=== PATIENT | male | born 1980 | race Caucasian/White ===

== ENCOUNTER 2022-05-23 12:26 | Emergency (ER) | payer OTHER, SELFPAY ==
[2022-05-23 12:37] VITALS: BP 134/86; PULSE 70; RESP 14; TEMP 37.2; O2SAT 99
--- NOTE | 2022-05-23 12:45 | DI.RAD_ITS ---
Exam(s) XR SHOULDER RT COMPLETE 2+V EXAM: XR SHOULDER RT COMPLETE 2+V CLINICAL HISTORY: trauma with lateral pain. TECHNIQUE: 2D digital imaging was performed. COMPARISON: No exams were available for comparison FINDINGS: Five views: There is a displaced comminuted fracture of the lateral aspect of the right clavicle. The AC joint i tself is not dislocated. No osseous lesions. Acromion appears unremarkable. Humeral head and neck are intact as is the osseous glenoid and coracoid process. No scapular findings. IMPRESSION: There is a comminuted displaced fracture of the distal aspect of the right clavicle. The right AC tyron int itself is intact. DATA REPOSITORY: RADIATION DOSE DELIVERED:
[2022-05-23] MEDS: Ketorolac 30 MG/ML VIAL IM (13:03)
--- OUTSIDE RECORDS SUMMARY | 2022-05-23 13:08 | XMS_ITS | Clinical Summary ---
:1980 Author Organization [facility] Address [phone] [place] [address] Care Team Providers Name Role Phone Bess Foote MD Primary Care Provider Allergies Active Allergy Reactions Severity Noted Date Comments Penicillins Itching 07/07/2016 Medications Medication Sig Dispensed Refills Start Date End Date Status allopurinol (ZYLOPRIM) Take 100 mg by 0 Active 100 MG tablet mouth daily. Active Problems No known active problems Social History Tobacco Use Types Packs/Day Years Used Date Never Smoker Alcohol Use Standard Drinks/Week Comments Yes 0 (1 standard drink = 0.6 oz pure alcoho l) moderate use Alcohol Habits Answer Date Recorded How often do you have a drink containing alcohol? Not asked How many drinks containing alcohol do you have on a Not aske d typical day when you are drinking? How often do you have six or more drinks on one occasion? No t asked Comment: moderate use 07/07/2016 Sex Assigned at Date Recorded Not on file Last Filed Vital Signs Vital Sign Reading Time Taken Comments Blood Pressure 127/82 07/22/2016 2:58 PM EST Pulse 77 07/22/2016 2:58 PM EST Temperature - - Respiratory Rate - - Oxygen Saturation - - Inhaled Oxygen Concentration - - Weight 90.7 kg (200 lb) 07/07/2016 9:02 AM EST Height 172.7 cm (5' 8) 07/07/2016 9:02 AM EST Body Mass Index 30.41 07/07/2016 9:02 AM EST Plan of Treatment Health Maintenance Due Date Last Done Comments Adult Td,Tdap Booster 1980 CREATININE LEVEL 1980 LIPID PANEL 1979 COVID-19 VACCINE (#1) 1979 DEPRESSION SCREENING 1997 HEPATITIS C SCREENING 1997 HIV ONE-TIME SCREENING (18-65 1997 YEARS) INFLUENZA VACCINE (#1) 2022 SMOKING STATUS SCREENING (Once Completed 07/22/2016 After 26 Yrs) HIB VACCINES Aged Out No longer eligib le based on patient's age to complete this topic MENINGOCOCCAL VACCINES (ACWY) Aged Out No longer eligible based on patient's age to complete this topic PNEUMOCOCCAL VACCINES (0-64 years) Aged Out No longer eligible based on patient's age to complete this topic Medical Devices Not on file Insurance Payer Benefit Plan / Subscriber ID Effective Dates Phone Addre ss Type Group [facility] [id number] 2015-Ngoc [phone] [address] [place] [address] [place] [address] Care Teams Outside Plant Supervisor Relationship Specialty Start Date End Date Bess Foote MD PCP - General Internal Medicine 06/30/[address] [place] [address] [phone] Additional Source Comments The information contained in this document represents components of the legal health record. It is not the complete legal health record.[facility]
--- OUTSIDE RECORDS SUMMARY | 2022-05-23 13:08 | XMS_ITS | Encounter Summary ---
:1980 Author Organization [facility] Address [phone] [facility] [place] [address] Care Team Providers Name Role Phone Bess Foote MD Primary Care Provider Reason for Visit Reason Comments New Evaluation Hip Pain radiating pain down the righ t side leg Back Pain Consultation (Routine) - Closed Specialty Diagnoses / Referred By Contact Referred To Contact Procedures Physical Medicine and Diagnoses BACK PAIN INTO RT LEG, MRI [facility] WAS ASKED DISC, , WEB CLC 06/30 Bess Foote Finno, Mark A, MD Rehabilitation / Procedures NEW PATIENT [address] [place] [address] [address] [place] [address] [address] [place], [place] Fax: [phone] Email: [email or web address] Referral ID Status Reason Start Date Expiration Date Visits Requ ested Visits Authorized [id number] Closed 07/07/2016 07/06/2017 3 3 Encounter Details Date Type Department Care Team Description 07/07/2016 Office Visit Orthopedics Da Carpenter, Lumbar rad iculopathy Renuka Sanchez MD (Primary Dx) [address] [address] [place] Sanchez [address] [phone] [email or web address] Social History Tobacco Use Types Packs/Day Years [...] Assigned at Date Recorded Not on file documented as of this encounter Last Filed Vital Signs Vital Sign Reading Time Taken Comments Blood Pressure 135/78 07/07/2016 9:02 AM EST Pulse 81 07/07/2016 9:02 AM EST Temperature - - Respiratory Rate - - Oxygen Saturation - - Inhaled Oxygen Concentration - - Weight 90.7 kg (200 lb) 07/07/2016 9:02 AM EST Height 172.7 cm (5' 8) 07/07/2016 9:02 AM EST Body Mass Index 30.41 07/07/2016 9:02 AM EST documented in this encounter Progress Notes Da Oliveros MD - 07/07/2016 9:00 AM EST Chief Complaint: Radiating right leg pain. History of Present Illness: The patient is a 36-year-old male. He comes to the office today with thechief complaint of radiating right leg pain. He quantifies this pain at a 6/10 on a numeric pain scale. The symptoms travel down quite distally. He does have tingling and numbness as well. He does notesome weakness. Sitting is his worst position, standing will help. The onset of the current problem was about six weeks ago. There was no specific precipitating event.Since the onset of these symptoms he has had no improvements. He denies any problem like this prior to six weeks ago. He has no other complaints. Diagnostics: The patient is status post an MRI of his lumbar spine. This was done on 06/18/2016. He does have these films as well as the official radiology report available for my personal review. There is a large right paracentral disc protrusion at L5-S1 near the S1 nerve root. Therapeutics: He is being followed by his primary care physician. He has been working with his exercise program. He has tried ibuprofen. Functional History: The patient is working. He stays reasonably active. Social History: The patient is . He does not smoke. He drinks alcohol socially. Past Medical History: The patient denies any pertinent medical history. Past Surgical History: Tonsillectomy. Medications: Ibuprofen p.r.n. Allergies: Penicillin causes a rash. Family History: The patient denies any pertinent family history of coronary artery disease or malignancy. Review of Systems: The patient has not had any changes in his bowel or bladder function. He has no complaints of fevers, night sweats, or chills. He has no chest pain or shortness of breath. He has no abdominal pain. Please see attached sheet for further review of systems. Physical Examination: The patient is sitting on the exam table in no acute distress. He is an alert and oriented x3 well-developed male. He is very pleasant. He is 5???8?? tall and weighs 200 pounds. Upon examination of his lumbar spine in the standing posture, there is 75 degrees of flexion with 25 d egrees of extension. There is end-range pain with flexion. Straight leg raising is negative on the left and positive on the right. Femoral stretch sign is negative bilaterally. Muscle motor strength is5/5 in the lower extremities. Reflexes in the bilateral lower extremities are 2+ patellar and 2+ Achilles. Sensation is intact in the lower extremities. There is some tenderness across the right-sided lumbar paraspinals. Skin over the lumbar spine is intact. He has full hip range of motion. He ambulates with a stable nonantalgic gait. Distal pulses are intact. Coordination is intact. No signs of lumbar instability. Assessment: 1. Unresolving radiating right leg pain. 2. The patient is status post an MRI of his lumbar spine. Recommendations: At this time we went over the patient???s symptoms. We spoke about his interventions to this point. He is not making any significant progress. The pain is present every day and interferes with his function. For those reasons I would like to go ahead with a focused right S1 transforaminal epidural steroid injection. The procedure was described in detail. Consent was obtained. All of his questions were answered. I will see him two weeks after the injection for reevaluation. He does not need any other imaging. He will continue with his normal activities. He will continue to work. He will continue with his physician-guided home exercise program which he has been doing for six weeks. He will continue with the p.r.n. use of his Advil. documented in this encounter Plan of Treatment Not on filedocumented as of this encounter Visit Diagnoses Diagnosis Lumbar radiculopathy - Primary Thoracic or lumbosacral neuritis or radi culitis, unspecified documented in this encounter Care Teams Web Retailer Relationship Specialty Start Date End Date Bess Foote MD PCP - General Internal Medicine 06/30/[address] [place] [address] [phone] documented as of this encounter Additional Source Comments The information contained in this document represents components of the legal health record. It is not the complete legal health record.[facility]
--- OUTSIDE RECORDS SUMMARY | 2022-05-23 13:08 | XMS_ITS ---
:1980 Author Care Team Providers Name Role Phone DR. KORI MARTIN MD Primary Care Provider [phone] DR. KORI MARTIN MD Referring Provider [phone] Allergies Code Code System Name Reaction Severity Status Onset Penicillins ? ? Active ? Medications Name Status Start Date Stop Date ? ? allopurinol 300 mg tablet Active ? Not av ailable indomethacin 25 mg capsule Active ? Not a vailable sulfamethoxazole 800 mg-trimethoprim 160 mg tablet Active ? Not available Problems Name Status Onset Date Source ? Multiple Benign Melanocytic Nevi Active ? Encounter Procedures None recorded. Results Lab Results None recorded. Past Encounters None recorded. Social History Tobacco Smoking Status Never Smoker Vaccine List None recorded. Plan of Care Reminders Provider Appointments None recorded. ? ? Lab None recorded. ? ? Referral None recorded. ? ? Procedures None recorded. ? ? Surgeries None recorded. ? ? Imaging None recorded. ? ? Vitals Weight 200 lbs
--- OUTSIDE RECORDS SUMMARY | 2022-05-23 13:08 | XMS_ITS | Encounter Summary ---
:1980 Author Organization [facility] Address [phone] [place] [address] Drive [place] [id number] Care Team Providers Name Role Phone Bess Foote MD Primary Care Provider Reason for Visit Reason Comments Back Pain Treatment and Therapy Plan (Routine) - Closed Specialty Diagnoses / Procedures Referred By Contact Refer red To Contact Bess Foote M D Finno, Mark A, MD [facility] [address] [facility] [address] [place] [address] [place] [phone] Email: [email or web address] Referral ID Status Reason Start Date Expiration Date Visits Requ ested Visits Authorized [id number] Closed 07/13/2016 09/11/2016 1 1 Encounter Details Date Type Department Care Team Description 07/22/2016 Nurse Only Orthopedics Sidney Benjamin and Da Oliveros, Lumbar radiculopathy [address] Zelaya MD (Primary Dx) [place] [address] [address] [facility] [phone] [place] [address] [email or web address] Social History Tobacco Use Types Packs/Day [...] - Inhaled Oxygen Concentration - - Weight - - Height - - Body Mass Index - - documented in this encounter Progress Notes Da Oliveros MD - 07/22/2016 2:45 PM EST Procedure Note Patient Name: Carmelo Moreno Date: 07/22/2016 Type of Surgery: Right S1 transforaminal epidural steroid injection Pre Operative Diagnosis: Lumbar radiculopathy Post Operative Diagnosis: Same Type of Anesthesia: 1% lidocaine without epinephrine Surgeon: Da Oliveros MD Blood loss: None Method of surgery: The patient signed an informed consent form. All risks and complications were explained and all questions were answered. The patient was prepped and draped in a sterile fashion in the prone position. The patient???s spine was surveyed under fluoroscopic visualization and anatomical landmarks were identified. Right S1 transforaminal epidural steroid injection: Using fluoroscopic guidance, the Right S1 foramen was localized. The skin and soft tissues overlyingthis structure were infiltrated with 1% lidocaine without epinephrine. A 22G 3.5 inch spinal needle was inserted down to the lateral aspect of the Right S1 neural foramen. A 1cc volume of Isovue M 200 contrast was injected to verify needle tip position. Spot films demonstrate the localization. The injection was then performed using 1cc of Dexamethasone 10 mg and 2cc bupivicaine 0.25%. Following the injection, the needle was removed. Complications: The patient tolerated the procedure well and without complications. Disposition: The patient was discharged to the recovery area in good condition. The patient was instructed to apply ice to the injection site as needed. The patient was provided with a discharge instruction sheet. The patient will follow up in the office in 2 weeks. Physician: Da Oliveros MD documented in this encounter Plan of Treatment Not on filedocumented as of this encounter Visit Diagnoses Diagnosis Lumbar radiculopathy - Primary Thoracic or lumbosacral neuritis or radi culitis, unspecified documented in this encounter Care Teams Lap Checker Relationship Specialty Start Date End Date Bess Foote MD PCP - General Internal Medicine 06/30/[address] [place] [phone] documented as of this encounter Additional Source Comments The information contained in this document represents components of the legal health record. It is not the complete legal health record.[facility]
--- OUTSIDE RECORDS SUMMARY | 2022-05-23 13:08 | XMS_ITS | Encounter Summary ---
:1980 Author Organization [facility] Address [phone] [facility] [place] [address] Care Team Providers Name Role Phone Bess Foote MD Primary Care Provider Reason for Visit Consultation (Routine) - Closed Specialty Diagnoses / Referred By Contact Referred To Contact Procedures Physical Medicine and Diagnoses BACK PAIN INTO RT LEG, MRI [facility] WAS ASKED DISC, , WEB CLC 06/30 Bess Foote Finno, Mark A, MD Rehabilitation / Procedures NEW PATIENT [address] [facility] Orthopaedic Surgery [address] [place] [address] [address] [place], [place] Fax: [phone] Email: [email or web address] Referral ID Status Reason Start Date Expiration Date Visits Requ ested Visits Authorized [id number] Closed 07/07/2016 07/06/2017 3 3 Encounter Details Date Type Department Care Team Description 08/06/2016 Office Visit Orthopedics Da Carpenter, Lumbar rad iculopathy Renuka OSBORNE (Primary Dx) [address] [place] [address] [place] [address] [phone] [email or web address] Social History Tobacco Use Types Packs/Day [...] on file documented as of this encounter Progress Notes Da Oliveros MD - 08/06/2016 8:45 AM EST Error with dictation this date documented in this encounter Plan of Treatment Not on filedocumented as of this encounter Visit Diagnoses Diagnosis Lumbar radiculopathy - Primary Thoracic or lumbosacral neuritis or radi culitis, unspecified documented in this encounter Care Teams Truck Mechanic Apprentice Relationship Specialty Start Date End Date Bess Foote MD PCP - General Internal Medicine 06/30/[address] [place] [phone] documented as of this encounter Additional Source Comments The information contained in this document represents components of the legal health record. It is not the complete legal health record.[facility]
--- OUTSIDE RECORDS SUMMARY | 2022-05-23 13:08 | XMS_ITS ---
:1980 Author Care Team Providers Name Role Phone DR. KORI MARTIN Primary Care Provider [phone] DR. KORI MARTIN Referring Provider [phone] Allergies Code Code System Name Reaction Severity Status Onset Penicillins ? ? Active ? Medications Name Status Start Date Stop Date ? ? allopurinol 300 mg tablet Completed ? 2020 Take 1 tablet every day by oral route for 90 days. Needs appointment with pcp for further refills 05/01/19 azithromycin 250 mg tablet Completed ? 05/16 Bactrim DS 800 mg-160 mg tablet Completed ? 08/09/2014 Take 1 tablet every 12 hours by oral route for 10 days. clindamycin HCl 300 mg capsule Completed ? 0 05/16/2020 diclofenac 1 % topical gel Active ? Not a vailable APPLY 2 GRAM TO THE AFFECTED AREA(S) BY TOPICAL ROUTE 4 TIMES P ER DAY doxycycline hyclate 100 mg capsule Completed ? 03/30/2013 Take 1 capsule twice a day by oral route for 21 days. hydrocodone 5 mg-acetaminophen 325 mg tablet Completed ? 05/16/2020 ibuprofen 800 mg tablet Completed ? 05/16/20 Take 1 tablet twice a day by oral route for 30 days. indomethacin 25 mg capsule Unknown ? Not a vailable ipratropium 0.5 mg-albuterol 3 mg (2.5 mg base)/3 mL Active ? Not available nebulization soln ketoconazole 2 % shampoo Active ? Not alicia ilable prednisone 10 mg tablet Completed ? 05/16/20 20 Notes: otc, ibuprofen Problems Name Status Onset Date Source ? Asthmatic Bronchitis Active 12/09/2016 ? Lyme Disease Active ? ? Vitamin D Deficiency Active ? ? Gout Active ? ? Insomnia Active ? ? Steatosis of Liver Active ? ? Cellulitis of Toe Active ? ? Skin Lesion Active ? ? Acute Sciatica Active ? ? Lumbar Radiculopathy Active ? ? Spasm of Back Muscles Active ? ? Liver Enzymes Abnormal Active ? ? Weakness of Right Leg Active ? ? Procedures Date Name Performed by ? ? Prior Orthopaedic Surgery Information no t available Notes: rt hand ? Tonsillectomy Information not avai lable 06/18/2014 Ultrasound, Liver [facility] (Radiology)(Interface) [address] [place] [address] (Work Place) 06/09/2016 MRI, Lumbar Spine [facility] (Mri) [address] [place] [address] (Work Place) Results Lab Results Date Name Specimen Result Interpretation Description Value Range Status Address ? 05/19/2021 HbA1C Normal Hemoglobin 5.2 % of <5.7 % [facility] (Hemoglobin a1C total of total [facility]- a1C), Blood HGB HGB [place] Lab: [address] [place], [place] 05/19/2021 CBC W/ Auto Normal White Blood 8.3 3.8-10.8 [facility] Diff Cell Count thousand thousand Di agnostics- /uL /uL [place] Lab: [address] [place], [place] ? ? Normal Red Blood 5.34 4.20-5.8 Final Ques t Cell Count million/ 0 Diag nostics- uL million/ [place] [facility] uL Lab: [address] [place], [place] ? ? Normal Hemoglobin 15.7 13.2-17. Final Que st g/dL 1 g/dL Diagnostic s- [place] Lab: [address] [place], [place] ? ? Normal Hematocrit 47.2 % 38.5-50. Final Que st 0 % Diagnostic s- [place] Lab: [address] [place], [place] ? ? Normal Mcv 88.4 fL 80.0-100 [facility] .0 fL Diagnostic s- [place] Lab: [address] [place], [place] ? ? Normal Mch 29.4 pg 27.0-33. [facility] 0 pg Diagnostic s- [place] Lab: [address] [place], [place] ? ? Normal Mchc 33.3 32.0-36. [facility] g/dL 0 g/dL Diagnostic s- [place] Lab: [address] [place], [place] ? ? Normal Rdw 12.4 % 11.0-15. [facility] 0 % Diagnostic s- [place] Lab: [address] [place], [place] ? ? Normal Platelet 175 140-400 [facility] Count thousand thousand Diagno stics- /uL /uL [place] Lab: [address] [place], [place] ? ? Normal Mpv 11.4 fL 7.5-12.5 [facility] fL Diagnostic s- [place] Lab: [address] [place], [place] ? ? Normal Absolute 5221 1500-780 [facility] Neutrophils cells/uL 0 [facility]- cells/uL [place] [facility] Lab: [address] [place], [place] ? ? Normal Absolute 2266 850-3900 [facility] Lymphocytes cells/uL cells/uL D iagnostics- [place] Lab: [address] [place], [place] ? ? Normal Absolute 623 200-950 [facility] Monocytes cells/uL cells/uL [facility]- [place] Lab: [address] [place], [place] ? ? Normal Absolute 133 15-500 [facility] Eosinophils cells/uL cells/uL D iagnostics- [place] Lab: [address] [place], [place] ? ? Normal Absolute 58 0-200 [facility] Basophils cells/uL cells/uL [facility]- [place] Lab: [address] [place], [place] ? ? Normal Neutrophils 62.9 % ? Final Ques t Diagnostic s- [place] Lab: [address] [place], [place] ? ? Normal Lymphocytes 27.3 % ? Final Ques t Diagnostic s- [place] Lab: [address] [place], [place] ? ? Normal Monocytes 7.5 % ? [facility] s- [place] Lab: [address] [place], [place] ? ? Normal Eosinophils 1.6 % ? Final Ques t [facility]: [address] B, [facility] ? ? Normal Basophils 0.7 % ? [facility]: [address] B, [place] 05/19/2021 TSH, Serum or Normal TSH W/reflex 1.67 0.40-4 .5 [facility] Plasma to FT4 mIU/L 0 mIU/L [facility] Lab: [address] B, [place] 05/19/2021 Lipid Panel, Normal Cholesterol, 191 <200 [facility] Serum Total mg/dL mg/dL [facility]: [address] B, [facility] ? ? Normal HDL 42 mg/dL > or = [facility] Cholesterol 40 mg/dL [facility]- [facility] h Lab: [address] B, [facility] ? ? High Triglyceride 273 <[address] s mg/dL mg/dL [facility] Lab: [address] B, [facility] ? ? High LDL-choleste 110 ? Final Que st rol mg/dL Diagnostic s- (calc) [facility]: [address] B, [facility] ? ? Normal Chol/hdlc 4.5 <5.0 [facility] Ratio (calc) (calc) [facility] Lab: [address] B, [place] ? ? High Non HDL 149 <130 [facility] Cholesterol mg/dL mg/dL Diagn ostics- (calc) (calc) [facility] Lab: [address] B, [place] 05/19/2021 CMP, Serum or Normal Glucose 101 65-139 Elva l [facility] Plasma mg/dL mg/dL [facility] Lab: [address] B, [facility] ? ? Normal Urea 25 mg/dL 7-25 [facility] Nitrogen mg/dL [facility]: [address] [place], [place] ? ? Normal Creatinine 1.20 0.60-1.[address] mg/dL 5 mg/dL Diagnosti cs- [place] Lab: [address] [place], [place] ? ? Normal eGFR 75 > or = [facility] Non-afr. mL/min/1 60 Diagno stics- English .73m2 mL/min/1 [place] .73m2 Lab: [address] B, [place] ? ? Normal eGFR 87 > or = Final Que st English mL/min/1 60 Diagno stics- .73m2 mL/min/1 [place] .73m2 Lab: [address] B, [facility] ? ? Normal BUN/creatini not 6-[address] ne Ratio applicab (calc) Diagno stics- le [place] (calc) Lab: [address] B, [place] ? ? Normal Sodium 139 135-146 [facility] mmol/L mmol/L Diagnostic s- [place] Lab: [address] B, [place] ? ? Normal Potassium 4.6 3.5-5.3 [facility] mmol/L mmol/L Diagnostic s- [place] Lab: [address] B, [place] ? ? Normal Chloride 102 98-110 [facility] mmol/L mmol/L Diagnostic s- [place] Lab: [address] B, [place] ? ? Normal Carbon 29 20-32 [facility] Dioxide mmol/L mmol/L Diagnosti - [place] Lab: [address] B, [place] ? ? Normal Calcium 9.9 8.6-10.3 [facility] mg/dL mg/dL Diagnostic s- [place] Lab: [address] B, [place] ? ? Normal Protein, 7.5 g/dL 6.1-8.1 Final Ques t Total g/dL Diagnostic s- [place] Lab: [address] B, [place] ? ? Normal Albumin 4.8 g/dL 3.6-5.1 [facility] g/dL [facility]: [address] B, [facility] ? ? Normal Globulin 2.7 g/dL 1.9-3.7 Final Ques t (calc) g/dL Diagnostic s- (calc) [facility]: [address] B, [place] ? ? Normal Albumin/glob 1.8 1.0-2.5 Final Qu est ulin Ratio (calc) (calc) [facility] Lab: [address] B, [facility] ? ? Normal Bilirubin, 0.9 0.2-1.2 Final Ques t Total mg/dL mg/dL Diagnostic [facility] Lab: [address] B, [facility] ? ? Normal Alkaline 84 U/L 36-130 [facility] Phosphatase U/L Diagn ostics- [facility] Lab: [address] B, [place] ? ? Normal Ast 25 U/L 10-40 [facility] U/L [facility] Lab: [address] B, [facility] ? ? Normal Alt 41 U/L 9-46 U/L [facility] Lab: [address] B, [place] 05/31/2020 HbA1C Normal Hemoglobin 5.1 % of <5.7 % [facility] (Hemoglobin a1C total of total [facility]- a1C), Blood HGB HGB [facility] Lab: [address] B, [place] 05/31/2020 Lipid Panel, Normal Cholesterol, 187 <200 [facility] Serum Total mg/dL mg/dL [facility] Lab: [address] B, [facility] ? ? Low HDL 32 mg/dL > or = [facility] Cholesterol 40 mg/dL [facility] Lab: [address] B, [facility] ? ? High Triglyceride 285 <[address] s mg/dL mg/dL Diagnostic s- [place] Lab: [address] B, [facility] ? ? High LDL-choleste 114 ? Final Que st rol mg/dL Diagnostic s- (calc) [facility] Lab: [address] B, [facility] ? ? High Chol/hdlc 5.8 <5.0 [facility] Ratio (calc) (calc) Diagnostic s- [place] Lab: [address] B, [facility] h ? ? High Non HDL 155 <130 [facility] Cholesterol mg/dL mg/dL Diagn ostics- (calc) (calc) [facility] Lab: [address] 05/31/2020 CMP, Serum or Normal Glucose 92 mg/dL 65-139 Fi nal [facility] Plasma mg/dL Diagnostic s- [facility] Lab: [address], [facility] h ? ? Normal Urea 18 mg/dL 7-25 [facility] Nitrogen mg/dL Diagnost ics- (BUN) [facility] h Lab: [address] ? ? Normal Creatinine 1.07 0.60-1.[address] mg/dL 5 mg/dL Diagnosti cs- [facility] Lab: [address], [facility] ? ? Normal eGFR 86 > or = [facility] Non-afr. mL/min/1 60 Diagno stics- English .73m2 mL/min/1 [place] .73m2 Lab: [address], [facility] h ? ? Normal eGFR 100 > or = Final Que st English mL/min/1 60 Diagno stics- .73m2 mL/min/1 [place] .73m2 Lab: [address], [facility] h ? ? Normal BUN/creatini not 6-[address] ne Ratio applicab (calc) Diagno stics- le [facility] ([facility] Lab: [address] B, [facility] ? ? Normal Sodium 139 135-146 [facility] mmol/L mmol/L Diagnostic s- [place] Lab: [address] B, [facility] ? ? Normal Potassium 4.4 3.5-5.3 [facility] mmol/L mmol/L [facility] Lab: [address] B, [facility] ? ? Normal Chloride 101 98-110 [facility] mmol/L mmol/L [facility] Lab: [address] B, [facility] ? ? Normal Carbon 28 20-32 Final [facility] Dioxide mmol/L mmol/L [facility]: [address], [facility] ? ? Normal Calcium 9.6 8.6-10.3 [facility] mg/dL mg/dL Diagnostic [facility] Lab: [address] B, [facility] ? ? Normal Protein, 7.0 g/dL 6.1-8.1 Final Ques t Total g/dL Diagnostic [facility] h Lab: [address], [facility] ? ? Normal Albumin 4.6 g/dL 3.6-5.1 [facility] g/dL Diagnostic [facility] Lab: [address], [facility] ? ? Normal Globulin 2.4 g/dL 1.9-3.7 Final Ques t (calc) g/dL Diagnostic s- (calc) [facility] Lab: [address], [facility] ? ? Normal Albumin/glob 1.9 1.0-2.5 Final Qu est ulin Ratio (calc) (calc) [facility]o [facility]ics- [facility] Lab: [address] B, [facility] ? ? Normal Bilirubin, 0.8 0.2-1.2 Final Ques t Total mg/dL mg/dL Diagnostic [facility] Lab: [address] B, [facility] ? ? Normal Alkaline 63 U/L 36-130 [facility] Phosphatase U/L Diagn ostics- [facility] Lab: [address] [place], [place] ? ? Normal Ast 24 U/L 10-40 [facility] U/L Diagnostic s- [place] Lab: [address] [place], [place] ? ? Normal Alt 43 U/L 9-46 U/L [facility] Diagnostic s- [place] Lab: [address] [place], [place] 05/31/2020 Uric Acid, High Uric Acid 8.2 4.0-8.0 Elva l [facility] Serum or mg/dL mg/dL Diagnost ics- Plasma [place] Lab: [address] [place], [place] 05/31/2020 TSH, Serum or Normal TSH W/reflex 2.31 0.40-4 .5 Final [facility] Plasma to FT4 mIU/L 0 mIU/L Diagnosti cs- [place] Lab: [address] [place], [place] 05/31/2020 CBC W/ Auto Normal White Blood 7.6 3.8-10.8 [facility] Diff Cell Count thousand thousand Di agnostics- /uL /uL [place] Lab: [address] [place], [place] ? ? Normal Red Blood 5.25 4.20-5.8 Final Ques t Cell Count million/ 0 Diag nostics- uL million/ [place] [facility] uL Lab: [address] [place], [place] ? ? Normal Hemoglobin 15.7 13.2-17. Final Que st g/dL 1 g/dL Diagnostic s- [place] Lab: [address] [place], [place] ? ? Normal Hematocrit 45.8 % 38.5-50. Final Que st 0 % Diagnostic s- [place] Lab: [address] [place], [place] ? ? Normal Mcv 87.2 fL 80.0-100 [facility] .0 fL Diagnostic s- [place] Lab: [address] [place], [place] ? ? Normal Mch 29.9 pg 27.0-33. [facility] 0 pg Diagnostic s- [place] Lab: [address] [place], [place] ? ? Normal Mchc 34.3 32.0-36. [facility] g/dL 0 g/dL Diagnostic s- [place] Lab: [address] [place], [place] ? ? Normal Rdw 12.3 % 11.0-15. Final [facility] 0 % Diagnostic s- [place] Lab: [address] [place], [place] ? ? Normal Platelet 166 140-400 Final [facility] Count thousand thousand Diagno stics- /uL /uL [place] Lab: [address] [place], [place] ? ? Normal Mpv 11.6 fL 7.5-12.5 [facility] fL Diagnostic s- [place] Lab: [address] [place], [place] ? ? Normal Absolute 4940 1500-780 Final [facility] Neutrophils cells/uL 0 [facility]- cells/uL [place] [facility] Lab: [address] [place], [place] ? ? Normal Absolute 2029 850-3900 [facility] Lymphocytes cells/uL cells/uL D iagnostics- [place] Lab: [address] [place], [place] ? ? Normal Absolute 464 200-950 [facility] Monocytes cells/uL cells/uL [facility]- [place] Lab: [address] [place], [place] ? ? Normal Absolute 129 15-500 [facility] Eosinophils cells/uL cells/uL D iagnostics- [place] Lab: [address] [place], [place] ? ? Normal Absolute 38 0-200 [facility] Basophils cells/uL cells/uL [facility]- [place] Lab: [address] [place], [place] ? ? Normal Neutrophils 65 % ? Final Ques t Diagnostic s- [place] Lab: [address] [place], [place] ? ? Normal Lymphocytes 26.7 % ? Final Ques t Diagnostic s- [place] Lab: [address] [place], [place] ? ? Normal Monocytes 6.1 % ? [facility] s- [place] Lab: [address] [place], [place] ? ? Normal Eosinophils 1.7 % ? Final Ques t Diagnostic s- [place] Lab: [address] [place], [place] ? ? Normal Basophils 0.5 % ? [facility] s- [place] Lab: [address] [place], [place] 05/10/2019 CBC W/ Auto Normal White Blood 7.6 X10 4.5-11.0 Final [place] Diff Count 3/uL X10 3/uL East ? L ab: [address] [place] , ? ? Normal Red Blood 5.11 X10 4.00-5.5 Final [facility] Count 6/uL 0 X10 East ? Lab : 6/uL [address] [facility] , ? ? Normal Hemoglobin 15.2 13.0-17. Final [place] g/dL 0 g/dL East ? Lab : 111 [facility] , ? ? Normal Hematocrit 45.2 % 37.5-50. Final [place] 0 % East ? Lab : 111 [facility] , ? ? Normal Mean 88.5 fL 80.0-100 Final [place] Corpuscular .0 fL East ? Lab: Volume 111 [facility] , ? ? Normal Mean 29.7 pg 27.0-34. Final [place] Corpuscular 0 pg East ? Lab: Hemoglobin 111 [facility] , ? ? Normal Mean 33.6 31.0-36. Final [place] Corpuscular g/dL 0 g/dL East ? Lab: HGB Conc [address] [facility] , ? ? Normal Red Cell 12.5 % 11.5-15. Final [address] Distribution 0 % East ? Lab: Width [address] [facility] , ? ? Normal Platelet 178 X10 150-[address] Count 3/uL X10 3/uL East ? L ab: [address] , ? ? ? Immature 0.7 % ? Final [place] Granulocytes East ? Lab: % (Auto) [address] [facility] , ? ? ? Neutrophils 63.5 % ? Final [place] % (Auto) East ? L ab: 111 [facility] , ? ? ? Lymphocytes 28.1 % ? Final [place] % (Auto) East ? L ab: 111 [facility] , ? ? ? Monocytes % 5.6 % ? Final [place] (Auto) [place] ? Lab : 111 [facility] , ? ? ? Eosinophils 1.6 % ? Final [place] % (Auto) East ? L ab: 111 [facility] , ? ? ? Basophils % 0.5 % ? Final [place] (Auto) [place] ? Lab : 111 [facility] , ? ? Normal Immature 0.05 X10 0.00-0.0 Final [facility] Granulocytes 3/uL 9 X10 East ? Lab: # (Auto) 3/uL 111 [facility] , ? ? Normal Neutrophils 4.8 X10 1.5-7.8 Final [facility] ER # (Auto) 3/uL X10 3/uL East ? Lab: 111 [facility] , ? ? Normal Lymphocytes 2.1 X10 1.0-4.8 Final [facility] ER # (Auto) 3/uL X10 3/uL East ? Lab: 111 [facility] , ? ? Normal Monocytes # 0.4 X10 0.0-0.8 Final [facility] ER (Auto) 3/uL X10 3/uL East ? L ab: 111 [facility] , ? ? Normal Eosinophils 0.1 X10 0.0-0.5 Final [facility] ER # (Auto) 3/uL X10 3/uL East ? Lab: 111 [facility] , ? ? Normal Basophils # 0.0 X10 0.0-0.2 Final [facility] ER (Auto) 3/uL X10 3/uL East ? L ab: [facility] , ? ? Normal Nucleated 0.0 /100 0.0-0.0 Final [facility] RBC% WBC /100 WBC East ? L ab: [address] [place] [address] , [place] 05/10/2019 Hemoglobin a1C Normal Hemoglobin 4.9 4.3-5.9 Final [facility] a1C East ? Lab : [facility] , ? ? ? Estimated 94 mg/dL ? Final [place] Average East ? La b: Glucose 111 [facility] , [place] 05/10/2019 CMP, Serum or Normal Sodium 141 137-146 Elva l [place] Plasma mmol/L mmol/L East ? Lab : [address] [place] [address] , [place] ? ? Normal potassium,K 4.7 3.5-5.3 Final [place] mmol/L mmol/L East ? Lab : [address] [place] [address] , ? ? Normal Chloride 104 98-107 Final [place] mmol/L mmol/L East ? Lab : [address] [place] [address] , [place] ? ? Normal Carbon 27 23-32 Final [facility] Dioxide mmol/L mmol/L East ? La b: 111 [facility] , [place] ? ? Normal Anion Gap 10 5-15 Final [place] mmol/L mmol/L East ? Lab : [address] [place] [address] , [place] ? ? Normal Blood Urea 24 mg/dL 5-25 Final [place] Nitrogen mg/dL East ? L ab: [address] [place] [address] , ? ? Normal Creatinine 1.2 0.6-1.4 Final [place] mg/dL mg/dL East ? Lab : [address] [place] [address] , ? ? ? Estimated > 60 >=60 Final [place] GFR ( mL/min/ Eas t ? Lab: Viki 111 [facility] , [place] ? ? ? Estimated > 60 >=60 Final [place] GFR (Non Afr mL/min/ Eas t ? Lab: Viki [address] [place] [address] , ? ? Normal BUN/creatini 20.0 10.0-20. Final S [place] ne Ratio 0 East ? L ab: [facility] , ? ? Normal Glucose 96 mg/dL <100 Final [place] -fasting East ? L ab: mg/dL [facility] , ? ? Normal Calcium 9.7 8.6-10.3 Final [place] mg/dL mg/dL East ? Lab : [address] [place] [address] , [place] ? ? ? Bilirubin,to 0.9 <1.2 Final [place] chelsy mg/dL mg/dL East ? Lab : [address] [place] [address] , ? ? Normal Aspartate 31 U/L 15-41 Final [place] Amino U/L East ? Lab : Transferase [address] [place] [address] [place] , ? ? Normal Alanine 46 U/L 14-63 Final [place] Aminotransfer U/L Eas t ? Lab: ase [address] [place] [address] [facility] , ? ? Normal Total 7.4 g/dL 6.4-8.3 Final [place] Protein g/dL East ? La b: [address] , ? ? Normal Albumin 4.8 g/dL 4.0-5.[address] Level g/dL East ? Lab : [address] [place] [address] [facility] , ? ? Normal Albumin/glob 1.8 1.0-2.[address] ulin Ratio East ? Lab: [address] [place] [address] [facility] , ? ? Normal Alkaline 69 U/L 40-129 Final [place] Phosphatase U/L East ? Lab: [address] [place] [address] , [place] 05/10/2019 Lipid Panel ? Triglyceride 119 <150 F inal [place] s mg/dL mg/dL East ? Lab : 111 [facility] , [place] ? ? ? Cholesterol 167 <200 Final [place] mg/dL mg/dL East ? Lab : 111 [facility] , [place] ? ? ? LDL 98 mg/dL <130 Final [place] Cholesterol,c mg/dL Eas t ? Lab: alculated 111 [facility] , [place] ? ? ? HDL 45 mg/dL >/= 40 Final [place] Cholesterol mg/dL East ? Lab: [address] [place] [address] , [place] ? ? ? LDL/HDL 2.2 ? Final [place] Ratio [place] ? Lab : 111 [facility] , [place] ? ? ? chol/HDL 3.7 ? Final [place] Ratio East ? Lab : [address] [place] [address] , [place] 05/10/2019 Lipid Panel ? Triglyceride 119 <150 F inal [place] s mg/dL mg/dL East ? Lab : 111 [facility] , [place] ? ? ? Cholesterol 167 <200 Final [place] mg/dL mg/dL East ? Lab : 111 [facility] , [place] ? ? ? LDL 98 mg/dL <130 Final [place] Cholesterol,c mg/dL Eas t ? Lab: alculated 111 [facility] , [place] ? ? ? HDL 45 mg/dL >/= 40 Final [facility] Cholesterol mg/dL East ? Lab: [address] [place] [facility] [place] ? ? ? LDL/HDL 2.2 ? Final [place] Ratio East ? Lab : 111 [facility] , [place] ? ? ? chol/HDL 3.7 ? Final [place] Ratio East ? Lab : 111 [facility] , [place] 05/10/2019 Thyroid Normal Thyroid 2.86 0.34-5.6 Final S [facility] Stimulating Stimulating uIU/mL 0 uIU/mL East ? Lab: Hormone Hormone [address] [facility] , [place] 05/16/2018 Uric Acid, Normal Uric Acid 5.3 4.0-8.0 Elva l [facility] Serum or mg/dL mg/dL Diagnost [facility]: [address], [facility] 05/16/2018 Lipid Panel, Normal Cholesterol, 179 <200 Final [facility] Serum Total mg/dL mg/dL [facility] Lab: [address] ? ? Low HDL 27 mg/dL >40 Final [facility] Cholesterol mg/dL [facility]: [address], [facility] ? ? High Triglyceride 270 <[address] s mg/dL mg/dL Diagnostic s- [facility] Lab: [address], [facility] ? ? High LDL-choleste 113 ? Final Que st rol mg/dL [facility]: [address] ? ? High Chol/hdlc 6.6 <5.0 Final [facility] Ratio (calc) (calc) [facility]- [facility]: [address] ? ? High Non HDL 152 <130 Final [facility] Cholesterol mg/dL mg/dL Diagn ostics- (calc) (calc) [facility] [address], [facility] 05/16[facility]2018 CMP, Serum or Normal Glucose 100 65-139 Elva l [facility] Plasma mg/dL mg/dL Diagnostic s- [place] Lab: [address] [place], [place] ? ? Normal Urea 20 mg/dL 7-25 Final [facility] Nitrogen mg/dL Diagnost ics- (BUN) [place] Lab: [address] [place], [place] ? ? Normal Creatinine 0.93 0.60-1.[address] mg/dL 5 mg/dL Diagnosti cs- [place] Lab: [address] [place], [place] ? ? Normal eGFR 104 > or = Final [facility] Non-afr. mL/min/1 60 Diagno stics- English .73m2 mL/min/1 [place] .73m2 Lab: [address] B, [place] ? ? Normal eGFR 120 > or = Final Que st English mL/min/1 60 Diagno stics- .73m2 mL/min/1 [place] [facility] .73m2 Lab: [address] [place], [place] ? ? Normal BUN/creatini not 6-[address] ne Ratio applicab (calc) Diagno stics- le [place] (calc) Lab: [address] B, [place] ? ? Normal Sodium 138 135-146 [facility] mmol/L mmol/L Diagnostic s- [place] Lab: [address] [place], [place] ? ? Normal Potassium 4.8 3.5-5.3 [facility] mmol/L mmol/L Diagnostic s- [place] Lab: [address] [place], [place] ? ? Normal Chloride 103 98-110 [facility] mmol/L mmol/L Diagnostic s- [place] Lab: [address] [place] B, [place] ? ? Normal Carbon 26 20-32 Final [facility] Dioxide mmol/L mmol/L Diagnosti cs- [place] Lab: [address] [place], [place] ? ? Normal Calcium 10.0 8.6-10.3 Final [facility] mg/dL mg/dL Diagnostic s- [place] Lab: [address] B, [facility] ? ? Normal Protein, 7.0 g/dL 6.1-8.1 Final Ques t Total g/dL [facility] [address] B, [facility] ? ? Normal Albumin 4.6 g/dL 3.6-5.1 [facility] g/dL [facility]: [address] B[facility] ? ? Normal Globulin 2.4 g/dL 1.9-3.7 Final Ques t (calc) g/dL Diagnostic s- (calc) [facility] Lab: [address] B, [facility] ? ? Normal Albumin/glob 1.9 1.0-2.5 Final Qu est ulin Ratio (calc) (calc[facility] [address] B[facility] ? ? Normal Bilirubin, 0.7 0.2-1.2 Final Ques t Total mg/dL mg/dL [facility] [address] B, [facility] ? ? Normal Alkaline 81 U/L 40-115 Final [facility] Phosphatase U/L Diagn ostics- [facility] Lab: [address] B, [facility] ? ? Normal Ast 24 U/L 10-40 [facility] U/L [facility] Lab: [address] B, [facility] ? ? High Alt 53 U/L 9-46 U/L [facility]: [address] B, [facility] 05/16/2018 TSH, Serum or Normal TSH W/reflex 1.64 0.40-4 .5 Final [facility] Plasma to FT4 mIU/L 0 mIU/L [facility]osti - [facility] Lab: [address] B, [facility] 05/16/2018 CBC W/ Auto Normal White Blood 7.0 3.8-10.8 Final [facility] Diff Cell Count thousand thousand Di agnostics- /uL /uL [place] Lab: [address] [place], [place] ? ? Normal Red Blood 5.19 4.20-5.8 Final Ques t Cell Count million/ 0 Diag nostics- uL million/ [place] ug uL Lab: [address] [place], [place] ? ? Normal Hemoglobin 15.2 13.2-17. Final Que st g/dL 1 g/dL Diagnostic s- [place] Lab: [address] [place], [place] ? ? Normal Hematocrit 44.2 % 38.5-50. Final Que st 0 % Diagnostic s- [place] Lab: [address] [place], [place] ? ? Normal Mcv 85.2 fL 80.0-100 [facility] .0 fL Diagnostic s- [place] Lab: [address] [place], [place] ? ? Normal Mch 29.3 pg 27.0-33. Final [facility] 0 pg Diagnostic s- [place] Lab: [address] [place], [place] ? ? Normal Mchc 34.4 32.0-36. Final [facility] g/dL 0 g/dL Diagnostic s- [place] Lab: [address] [place], [place] ? ? Normal Rdw 12.9 % 11.0-15. Final [facility] 0 % Diagnostic s- [place] Lab: [address] [place], [place] ? ? Normal Platelet 196 140-400 Final [facility] Count thousand thousand Diagno stics- /uL /uL [place] Lab: [address] [place], [place] ? ? Normal Mpv 11.3 fL 7.5-12.5 Final [facility] fL Diagnostic s- [place] Lab: [address] [place], [place] ? ? Normal Absolute 4200 1500-780 Final [facility] Neutrophils cells/uL 0 Hannah gnostics- cells/uL [place] [facility] Lab: [address] [place], [place] ? ? Normal Absolute 2135 850-3900 Final [facility] Lymphocytes cells/uL cells/uL D iagnostics- [place] Lab: [address] [place], [place] ? ? Normal Absolute 413 200-950 Final [facility] Monocytes cells/uL cells/uL [facility] gnostics- [place] Lab: [address] [place], [place] ? ? Normal Absolute 210 15-500 Final [facility] Eosinophils cells/uL cells/uL D iagnostics- [place] Lab: [address] [place], [place] ? ? Normal Absolute 42 0-200 Final [facility] Basophils cells/uL cells/uL [facility]- [place] Lab: [address] [place], [place] ? ? Normal Neutrophils 60 % ? Final Ques t Diagnostic s- [place] Lab: [address] [place], [place] ? ? Normal Lymphocytes 30.5 % ? Final Ques t Diagnostic s- [place] Lab: [address] [place], [place] ? ? Normal Monocytes 5.9 % ? [facility] Diagnostic s- [place] Lab: [address] [place], [place] ? ? Normal Eosinophils 3.0 % ? Final Ques t Diagnostic s- [place] Lab: [address] [place], [place] ? ? Normal Basophils 0.6 % ? [facility] Diagnostic s- [place] Lab: [address] [place], [place] 05/12/2017 TSH, Serum or Normal Tsh 3.67 0.40-4.5 Elva l [facility] Plasma mIU/L 0 mIU/L Diagnosti cs- [place] Lab: [address] [place], [place] 05/12/2017 CBC W/ Auto Normal White Blood 8.5 3.8-10.8 Final [facility] Diff Cell Count thousand thousand Di agnostics- /uL /uL [place] Lab: [address] [place], [place] ? ? Normal Red Blood 5.23 4.20-5.8 Final Ques t Cell Count million/ 0 Diag nostics- uL million/ [place] [facility] uL Lab: [address] [place], [place] ? ? Normal Hemoglobin 15.4 13.2-17. Final Que st g/dL 1 g/dL Diagnostic s- [place] Lab: [address] [place], [place] ? ? Normal Hematocrit 44.9 % 38.5-50. Final Que st 0 % Diagnostic s- [place] Lab: [address] [place], [place] ? ? Normal Mcv 85.9 fL 80.0-100 [facility] .0 fL Diagnostic s- [place] Lab: [address] [place], [place] ? ? Normal Mch 29.5 pg 27.0-33. Final [facility] 0 pg Diagnostic s- [place] Lab: [address] [place], [place] ? ? Normal Mchc 34.3 32.0-36. Final [facility] g/dL 0 g/dL Diagnostic s- [place] Lab: [address] [place], [place] ? ? Normal Rdw 13.4 % 11.0-15. Final [facility] 0 % Diagnostic s- [place] Lab: [address] [place], [place] ? ? Normal Platelet 184 140-400 Final [facility] Count thousand thousand Diagno stics- /uL /uL [place] Lab: [address] [place], [place] ? ? Normal Mpv 9.8 fL 7.5-12.5 Final [facility] fL Diagnostic s- [place] Lab: [address] [place], [place] ? ? Normal Absolute 5126 1500-780 Final [facility] Neutrophils cells/uL 0 [facility]- cells/uL [place] [facility] Lab: [address] [place], [place] ? ? Normal Absolute 2448 850-3900 Final [facility] Lymphocytes cells/uL cells/uL D iagnostics- [place] Lab: [address] [place], [place] ? ? Normal Absolute 510 200-950 Final [facility] Monocytes cells/uL cells/uL [facility]- [place] Lab: [address] [place], [place] ? ? Normal Absolute 340 15-500 Final [facility] Eosinophils cells/uL cells/uL D iagnostics- [place] Lab: [address] [place], [place] ? ? Normal Absolute 77 0-200 Final [facility] Basophils cells/uL cells/uL [facility]- [place] Lab: [address] [place], [place] ? ? Normal Neutrophils 60.3 % ? Final Ques t Diagnostic s- [place] Lab: [address] [place], [place] ? ? Normal Lymphocytes 28.8 % ? Final Ques t Diagnostic s- [place] Lab: [address] [place], [place] ? ? Normal Monocytes 6.0 % ? [facility] Diagnostic s- [place] Lab: [address] [place], [place] ? ? Normal Eosinophils 4.0 % ? Final Ques t Diagnostic s- [place] Lab: [address] [place], [place] ? ? Normal Basophils 0.9 % ? [facility] Diagnostic s- [place] Lab: [address] [place], [place] 05/12/2017 Lipid Panel, Normal Cholesterol, 171 <200 Final [facility] Serum Total mg/dL mg/dL Diagnostic s- [place] Lab: [address] [place], [place] ? ? Low HDL 24 mg/dL >40 [facility] Cholesterol mg/dL Diagn ostics- [place] Lab: [address] [place], [place] ? ? High Triglyceride 304 <[address] s mg/dL mg/dL Diagnostic s- [place] Lab: [address] [place], [place] ? ? High LDL-choleste 106 ? Final Que st rol mg/dL Diagnostic s- (calc) [place] Lab: [address] [place], [place] ? ? High Chol/hdlc 7.1 <5.0 Final [facility] Ratio (calc) (calc) Diagnostic s- [place] Lab: [address] ? ? High Non HDL 147 <130 Final [facility] Cholesterol mg/dL mg/dL Diagn ostics- (calc) (calc) [facility]: [address] B, [facility] 05/12/2017 CMP, Serum or Normal Glucose 89 mg/dL 65-99 Fi nal [facility] Plasma mg/dL Diagnostic [facility]- [facility]: [address] B, [facility] ? ? Normal Urea 21 mg/dL 7-25 Final [facility] Nitrogen mg/dL Diagnost ics- (BUN) [facility] Lab: [address] B[facility] ? ? Normal Creatinine 1.18 0.60-1.[address] mg/dL 5 mg/dL Diagnosti cs- [place] Lab: [address] B, [facility] ? ? Normal eGFR 78 > or = Final [facility] Non-afr. mL/min/1 60 Diagno stics- English .73m2 mL/min/1 [place] .73m2 Lab: [address] B, [facility] ? ? Normal eGFR 91 > or = Final Que st English mL/min/1 60 Diagno stics- .73m2 mL/min/1 [place] [facility] .73m2 Lab: [address] B, [facility] ? ? Normal BUN/creatini not 6-[address] ne Ratio applicab (calc) Diagno stics- le [facility] (calc) Lab: [address], [facility] ? ? Normal Sodium 140 135-146 Final [facility] mmol/L mmol/L [facility]: [address], [facility] ? ? Normal Potassium 4.7 3.5-5.3 Final [facility] mmol/L mmol/L Diagnostic s- [place] Lab: [address] B, [facility] ? ? Normal Chloride 105 98-110 Final [facility] mmol/L mmol/L Diagnostic - [facility] Lab: [address] B, [place] ? ? Normal Carbon 24 20-31 Final [facility] Dioxide mmol/L mmol/L [facility] Lab: [address], [facility] h ? ? Normal Calcium 9.6 8.6-10.3 Final [facility] mg/dL mg/dL Diagnostic [facility] h Lab: [address], [facility] ? ? Normal Protein, 6.9 g/dL 6.1-8.1 Final Ques t Total g/dL Diagnostic [facility] Lab: [address], [facility] h ? ? Normal Albumin 4.4 g/dL 3.6-5.1 Final [facility] g/dL Diagnostic [facility] Lab: [address], [facility] ? ? Normal Globulin 2.5 g/dL 1.9-3.7 Final Ques t (calc) g/dL Diagnostic s- (calc) [facility] Lab: [address] ? ? Normal Albumin/glob 1.8 1.0-2.5 Final Qu est ulin Ratio (calc) (calc) [facility] [address] ? ? Normal Bilirubin, 0.8 0.2-1.2 Final Ques t Total mg/dL mg/dL Diagnostic [facility] Lab: [address] h ? ? Normal Alkaline 81 U/L 40-115 Final [facility] Phosphatase U/L Diagn ostics- [facility] h Lab: [address], [facility] ? ? Normal Ast 29 U/L 10-40 [facility] U/L Diagnostic [facility] Lab: [address] h ? ? High Alt 50 U/L 9-46 U/L Final [facility] Diagnostic [facility] Lab: [address] 05/12/2017 Vitamin D, Low Vitamin 28 NG/mL 30-100 Final [facility] 25-Hydroxy, D,25-Oh,total NG/mL Diagnostics- Total, Serum ,[place] Lab: [address] [place], [place] 01/20/2017 Pathology ? Results ? ? ? N [facility] : [address], [place] 01/06/2017 Pathology ? Results ? ? ? N [facility] : [address], [place] 01/06/2017 Semen Analysis ? No ? ? ? [place] (Post observation [place] y Vasectomy) recorded. [facility] : [address], [place] 11/06/2016 Pathology ? Results ? ? ? N [facility] : [address], [place] 05/05/2016 CBC W/ Auto Normal White Blood 8.3 3.8-10.8 Final [facility] Diff Cell Count thousand thousand Di agnostics- /uL /uL [place] Lab: [address] [place], [place] ? ? Normal Red Blood 5.30 4.20-5.8 Final Ques t Cell Count million/ 0 Diag nostics- uL million/ [place] [facility] uL Lab: [address] [place], [place] ? ? Normal Hemoglobin 15.6 13.2-17. Final Que st g/dL 1 g/dL Diagnostic s- [place] Lab: [address] [place], [place] ? ? Normal Hematocrit 45.7 % 38.5-50. Final Que st 0 % Diagnostic s- [place] Lab: [address] [place], [place] ? ? Normal Mcv 86.2 fL 80.0-100 Final [facility] .0 fL Diagnostic s- [place] Lab: [address] [place], [place] ? ? Normal Mch 29.4 pg 27.0-33. Final [facility] 0 pg Diagnostic s- [place] Lab: [address] [place], [place] ? ? Normal Mchc 34.1 32.0-36. Final [facility] g/dL 0 g/dL Diagnostic s- [place] Lab: [address] [place], [place] ? ? Normal Rdw 13.5 % 11.0-15. Final [facility] 0 % Diagnostic s- [place] Lab: [address] [place], [place] ? ? Normal Platelet 177 140-400 Final [facility] Count thousand thousand Diagno stics- /uL /uL [place] Lab: [address] [place], [place] ? ? Normal Mpv 10.3 fL 7.5-11.5 [facility] fL Diagnostic s- [place] Lab: [address] [place], [place] ? ? Normal Absolute 5237 1500-780 Final [facility] Neutrophils cells/uL 0 [facility]- cells/uL [place] [facility] Lab: [address] [place], [place] ? ? Normal Absolute 2390 850-3900 Final [facility] Lymphocytes cells/uL cells/uL D iagnostics- [place] Lab: [address] [place], [place] ? ? Normal Absolute 465 200-950 Final [facility] Monocytes cells/uL cells/uL [facility]- [place] Lab: [address] [place], [place] ? ? Normal Absolute 141 15-500 Final [facility] Eosinophils cells/uL cells/uL D iagnostics- [place] Lab: [address] [place], [place] ? ? Normal Absolute 66 0-200 Final [facility] Basophils cells/uL cells/uL [facility]- [place] Lab: [address] [place], [place] ? ? Normal Neutrophils 63.1 % ? Final Ques t Diagnostic s- [place] Lab: [address] [place], [place] ? ? Normal Lymphocytes 28.8 % ? Final Ques t Diagnostic s- [place] Lab: [address] [place], [place] ? ? Normal Monocytes 5.6 % ? [facility] Diagnostic s- [place] Lab: [address] [place], [place] ? ? Normal Eosinophils 1.7 % ? Final Ques t Diagnostic s- [place] Lab: [address] [place], [place] ? ? Normal Basophils 0.8 % ? Final [facility] Diagnostic s- [facility] h Lab: [address], [facility] 05/05/2016 Lipid Panel, Normal Cholesterol, 178 125-200 Final [facility] Serum Total mg/dL mg/dL Diagnostic s- [facility] h Lab: [address], [facility] ? ? Low HDL 28 mg/dL > or = Final [facility] Cholesterol 40 mg/dL Hannah gnostics- [facility] h Lab: [address], [facility] ? ? High Triglyceride 274 <[address] s mg/dL [facility] [address] ? ? Normal LDL-choleste 95 mg/dL <130 Final Q uest rol (calc) mg/dL Diagnostic s- (calc) [facility] Lab: [address] ? ? High Chol/hdlc 6.4 < or = Final [facility] Ratio (calc) 5.0 Diagnostic s- (calc) [facility] Lab: [address] ? ? Normal Non HDL 150 ? Final [facility] Cholesterol mg/dL Diagn ostics- (calc) [facility] Lab: [address] 05/05/2016 CMP, Serum or Normal Glucose 83 mg/dL 65-99 Fi nal [facility] Plasma mg/dL [facility]: [address], [facility] ? ? Normal Urea 19 mg/dL 7-25 Final [facility] Nitrogen mg/dL Diagnost ics- (BUN) [facility] h Lab: [address] ? ? Normal Creatinine 1.01 0.60-1.[address] mg/dL 5 mg/dL [facility]osti [facility]: [address], [facility] ? ? Normal eGFR 95 > or = Final [facility] Non-afr. mL/min/1 60 Diagno stics- English .73m2 mL/min/1 [place] .73m2 Lab: [address] [place], [place] ? ? Normal eGFR 110 > or = Final Que st English mL/min/1 60 Diagno stics- .73m2 mL/min/1 [place] [facility] .73m2 Lab: [address] [place], [place] ? ? Normal BUN/creatini not 6-[address] ne Ratio applicab (calc) Diagno stics- le [place] (calc) Lab: [address] [place], [place] ? ? Normal Sodium 142 135-146 [facility] mmol/L mmol/L Diagnostic s- [place] Lab: [address] [place], [place] ? ? Normal Potassium 4.2 3.5-5.3 [facility] mmol/L mmol/L Diagnostic s- [place] Lab: [address] [place], [place] ? ? Normal Chloride 106 98-110 [facility] mmol/L mmol/L Diagnostic s- [place] Lab: [address] [place], [place] ? ? Normal Carbon 27 20-31 Final [facility] Dioxide mmol/L mmol/L Diagnosti cs- [place] Lab: [address] [place], [place] ? ? Normal Calcium 10.0 8.6-10.3 Final [facility] mg/dL mg/dL Diagnostic s- [place] Lab: [address] [place], [place] ? ? Normal Protein, 6.8 g/dL 6.1-8.1 Final Ques t Total g/dL Diagnostic s- [place] Lab: [address] [place], [place] ? ? Normal Albumin 4.6 g/dL 3.6-5.1 [facility] g/dL Diagnostic s- [place] Lab: [address] [place], [place] ? ? Normal Globulin 2.2 g/dL 1.9-3.7 Final Ques t (calc) g/dL Diagnostic s- (calc) [place] Lab: [address] [place], [place] ? ? Normal Albumin/glob 2.1 1.0-2.5 Final Qu est ulin Ratio (calc) (calc) Diagno stics- [facility] Lab: [address] [place], [place] ? ? Normal Bilirubin, 0.6 0.2-1.2 Final Ques t Total mg/dL mg/dL Diagnostic s- [place] Lab: [address] [place], [place] ? ? Normal Alkaline 85 U/L 40-115 Final [facility] Phosphatase U/L Diagn ostics- [facility] Lab: [address] [place], [place] ? ? Normal Ast 23 U/L 10-40 [facility] U/L Diagnostic s- [facility] Lab: [address] [place], [facility] ? ? High Alt 49 U/L 9-46 U/L [facility]: [address] [place], [facility] 05/05/2016 TSH, Serum or Normal Tsh 1.36 0.40-4.5 Elva l [facility] Plasma mIU/L 0 mIU/L Diagnosti cs- [place] Lab: [address] [place], [facility] 06/12/2015 Urinalysis Normal Color yellow yellow Final Qu est Complete, Diagnos tics- Reflex Culture [facility] Lab: [address] [place], [place] ? ? Normal Appearance clear clear Final [facility] Diagnostic s- [facility] Lab: [address] [place], [place] ? ? Normal Specific 1.025 1.001-1. Final [facility] [place] 035 Diagnosti cs- [facility] Lab: [address] [place], [place] ? ? Normal Ph 6.5 5.0-8.0 Final [facility] Diagnostic s- [place] Lab: [address] [place], [place] ? ? Normal Glucose negative negative Final Ques t Diagnostic s- [facility] Lab: [address] [place], [place] ? ? Normal Bilirubin negative negative Final Qu est Diagnostic s- [facility] Lab: [address] [place], [place] ? ? Normal Ketones negative negative Final Ques t Diagnostic s- [place] Lab: [address] [place], [place] ? ? Normal Occult Blood negative negative [facility] Diagnostic s- [place] Lab: [address] [place], [place] ? ? Normal Protein negative negative Final Ques t Diagnostic s- [place] Lab: [address] [place], [place] ? ? Normal Nitrite negative negative Final Ques t Diagnostic s- [place] Lab: [address] [place], [place] ? ? Normal Leukocyte negative negative Final Qu est Esterase Diagnost ics- [place] Lab: [address] [place], [place] ? ? Normal Wbc none 0-5 /hpf [facility] seen Diagnostic s- /hpf [place] Lab: [address] [place], [place] ? ? Normal Rbc none 0-2 /hpf [facility] seen Diagnostic s- /hpf [place] Lab: [address] [place], [place] ? ? Normal Squamous none < or = 5 Final [facility] Epithelial seen /hpf Diagno stics- Cells /hpf [place] Lab: [address] [place], [place] ? ? Normal Bacteria none none Final [facility] seen seen Diagnostic s- /hpf /hpf [place] Lab: [address] [address] [place], [place] ? ? Normal Hyaline Cast none none Final Que st seen seen Diagnostic s- /lpf /lpf [place] Lab: [address] [place], [place] 2015 Lipid Panel, Normal Cholesterol, 192 125-200 Final [facility] Serum Total mg/dL mg/dL Diagnostic s- [place] Lab: [address] [place], [place] ? ? Low HDL 31 mg/dL > or = Final [facility] Cholesterol 40 mg/dL [facility]- [place] Lab: [address] [place], [place] ? ? High Triglyceride 305 <[address] s mg/dL mg/dL Diagnostic s- [place] Lab: [address] B, [facility] ? ? Normal LDL-choleste 100 <[address] rol mg/dL mg/dL Diagnostic s- [facility]calc[facility]: [address], [facility] ? ? High Chol/hdlc 6.2 < or = Final [facility] Ratio (calc) 5.0 Diagnostic s- [facility]calc[facility]: [address], [facility] h ? ? High Non HDL 161 ? Final [facility] Cholesterol mg/dL Diagn ostics- (calc) [facility] h Lab: [address] 2015 CMP, Serum or Normal Glucose 81 mg/dL 65-99 Fi nal [facility] Plasma mg/dL [facility]: [address] ? ? Normal Urea 16 mg/dL 7-25 Final [facility] Nitrogen mg/dL Diagnost ics- (BUN) [facility] h Lab: [address] ? ? Normal Creatinine 1.00 0.60-1.[address] mg/dL 5 mg/dL [facility]: [address], [facility] ? ? Normal eGFR 96 > or = Final [facility] Non-afr. mL/min/1 60 Diagno stics- English .73m2 mL/min/1 [place] .73m2 Lab: [address], [facility] ? ? Normal eGFR 112 > or = Final Que st English mL/min/1 60 Diagno stics- .73m2 mL/min/1 [place] [facility] .73m2 Lab: [address], [facility] ? ? Normal BUN/creatini not 6-[address] ne Ratio applicab (calc) Diagno stics- le [facility] ([facility] Lab: [address], [facility] h ? ? Normal Sodium 142 135-146 Final [facility] mmol/L mmol/L [facility] [address] B, [facility] ? ? Normal Potassium 3.9 3.5-5.3 Final [facility] mmol/L mmol/L [facility]: [address] B[facility] ? ? Normal Chloride 104 98-110 Final [facility] mmol/L mmol/L [facility]: [address] B, [facility] ? ? Normal Carbon 24 19-30 Final [facility] Dioxide mmol/L mmol/L [facility]: [address], [facility] ? ? High Calcium 10.4 8.6-10.3 Final [facility] mg/dL mg/dL [facility]: [address], [facility] ? ? Normal Protein, 7.1 g/dL 6.1-8.1 Final Ques t Total g/dL Diagnostic [facility] Lab: [address] B, [facility] ? ? Normal Albumin 4.7 g/dL 3.6-5.1 Final [facility] g/dL [facility] Lab: [address], [facility] ? ? Normal Globulin 2.4 g/dL 1.9-3.7 Final Ques t (calc) g/dL Diagnostic s- (calc) [facility] [address] ? ? Normal Albumin/glob 2.0 1.0-2.5 Final Qu est ulin Ratio (calc) (calc) [facility]o [facility]- [facility] Lab: [address] ? ? Normal Bilirubin, 0.5 0.2-1.2 Final Ques t Total mg/dL mg/dL Diagnostic [facility]: [address] B, [facility] ? ? Normal Alkaline 82 U/L 40-115 Final [facility] Phosphatase U/L Diagn ostics- [facility] Lab: [address] [place], [place] ? ? Normal Ast 30 U/L 10-40 [facility] U/L Diagnostic s- [place] Lab: [address] [place], [place] ? ? High Alt 55 U/L 9-46 U/L [facility] Diagnostic s- [place] Lab: [address] [place], [place] 2015 TSH, Serum or Normal Tsh 2.69 0.40-4.5 Elva l [facility] Plasma mIU/L 0 mIU/L Diagnosti cs- [place] Lab: [address] [place] B, [place] 2015 Cbc Normal White Blood 8.4 3.8-10.8 Final [facility] Cell Count thousand thousand Di agnostics- /uL /uL [place] Lab: [address] [place], [place] ? ? Normal Red Blood 5.18 4.20-5.8 Final Ques t Cell Count million/ 0 Diag nostics- uL million/ [place] [facility] uL Lab: [address] [place], [place] ? ? Normal Hemoglobin 15.2 13.2-17. Final Que st g/dL 1 g/dL Diagnostic s [place] Lab: [address] [place] B, [place] ? ? Normal Hematocrit 44.5 % 38.5-50. Final Que st 0 % Diagnostic s- [place] Lab: [address] [place], [place] ? ? Normal Mcv 85.9 fL 80.0-100 Final [facility] .0 fL Diagnostic s- [place] Lab: [address] [place], [place] ? ? Normal Mch 29.3 pg 27.0-33. Final [facility] 0 pg Diagnostic s- [place] Lab: [address] [place], [place] ? ? Normal Mchc 34.1 32.0-36. Final [facility] g/dL 0 g/dL Diagnostic s- [place] Lab: [address] [place], [place] ? ? Normal Rdw 13.3 % 11.0-15. Final [facility] 0 % [facility]: [address], [facility] ? ? Normal Platelet 176 140-400 Final [facility] Count thousand thousand Diagno stics- /uL /uL [facility] Lab: [address], [facility] 2015 Vitamin D, Low Vitamin 26 NG/mL 30-100 Final [facility] 25-Hydroxy, D,25-Oh,total NG/mL Diagnostics- Total, Serum ,ia [facility] Lab: [address], [facility] 07/12/2014 HBsAg Normal Hepatitis B non-reac non-reac Fin al [facility] (Hepatitis B Surface tive tive [facility]- Surface Ag), Antigen Flavia samuels Confirmation, Lab : [address], [facility] 07/12/2014 HBsAg Normal Hepatitis B non-reac non-reac Fin al [facility] (Hepatitis B Surface tive tive [facility]- Surface Ag), Antigen Flavia samuels Confirmation, Lab : [address], [facility] 07/12/2014 Hepatitis B ABNORMAL Hepatitis B reactive non-r eac Final [facility] Surface Ab, Surface tive Diag nostics- Qualitative, Antibody Ql [place] Serum Lab: [address] 07/12/2014 CMP, Serum or Normal Glucose 84 mg/dL 65-99 Fi nal [facility] Plasma mg/dL Diagnostic [facility]- [facility]: [address], [facility] ? ? Normal Urea 18 mg/dL 7-25 Final [facility] Nitrogen mg/dL Diagnost ics- (BUN) [facility] Lab: [address], [facility] ? ? Normal Creatinine 0.89 0.60-1.[address] mg/dL 5 mg/dL Diagnosti cs- [facility]: [address], [facility] ? ? Normal eGFR 111 > or = Final [facility] Non-afr. mL/min/1 60 Diagno stics- English .73m2 mL/min/1 [place] .73m2 Lab: [address] [place], [place] ? ? Normal eGFR 128 > or = Final Que st English mL/min/1 60 Diagno stics- .73m2 mL/min/1 [place] [facility] .73m2 Lab: [address] [place], [place] ? ? ? BUN/creatini not 6-[address] ne Ratio applicab (calc) Diagno stics- le [place] (calc) Lab: [address] [place], [place] ? ? Normal Sodium 141 135-146 Final [facility] mmol/L mmol/L Diagnostic s- [place] Lab: [address] [place], [place] ? ? Normal Potassium 3.8 3.5-5.3 Final [facility] mmol/L mmol/L Diagnostic s- [place] Lab: [address] [place], [place] ? ? Normal Chloride 106 98-110 Final [facility] mmol/L mmol/L Diagnostic s- [place] Lab: [address] [place], [place] ? ? Normal Carbon 27 19-30 Final [facility] Dioxide mmol/L mmol/L Diagnosti cs- [place] Lab: [address] B, [place] ? ? Normal Calcium 9.8 8.6-10.3 Final [facility] mg/dL mg/dL Diagnostic s- [place] Lab: [address] [place], [place] ? ? Normal Protein, 6.9 g/dL 6.1-8.1 Final Ques t Total g/dL Diagnostic s- [place] Lab: [address] [place], [place] ? ? Normal Albumin 4.7 g/dL 3.6-5.1 Final [facility] g/dL Diagnostic s- [place] Lab: [address] [place], [place] ? ? Normal Globulin 2.2 g/dL 1.9-3.7 Final Ques t (calc) g/dL Diagnostic s- (calc) [place] Lab: [address] [place], [place] ? ? Normal Albumin/glob 2.1 1.0-2.5 Final Qu est ulin Ratio (calc) (calc) Diagno [facility] Lab: [address], [facility] ? ? Normal Bilirubin, 0.5 0.2-1.2 Final Ques t Total mg/dL mg/dL Diagnostic s- [facility] Lab: [address], [facility] ? ? Normal Alkaline 77 U/L 40-115 Final [facility] Phosphatase U/L Diagn [facility] Lab: [address], [facility] ? ? Normal Ast 30 U/L 10-40 [facility] [address] ? ? High Alt 49 U/L 9-46 U/L Final [facility] Diagnostic [facility] Lab: [address] 07/12/2014 Hepatitis C Normal Hepatitis C non-reac non-joshua c Final [facility] Ab, Serum Antibody tive tive Diagn [facility] Lab: [address] ? ? Normal Signal to 0.01 <1.00 Final [facility] Cut-off Diagnosti [facility] Lab: [address] 06/06/2014 Lipid Panel, Normal Cholesterol, 192 125-200 Final [facility] Serum Total mg/dL mg/dL Diagnostic [facility] Lab: [address] ? ? Low HDL 36 mg/dL > or = Final [facility] Cholesterol 40 mg/dL [facility]: [address] ? ? High Triglyceride 186 <[address] s mg/dL mg/dL Diagnostic s- [facility] Lab: [address], [facility] ? ? Normal LDL-choleste 119 <[address] rol mg/dL mg/dL Diagnostic s- (calc) (calc) [facility] Lab: [address] ? ? High Chol/hdlc 5.3 < or = Final [facility] Ratio (calc) 5.0 Diagnostic s- (calc) [facility]: [address], [facility] ? ? Normal Non HDL 156 ? Final [facility] Cholesterol mg/dL Diagn ostics- (calc) [facility]: [address] [facility] h 06/06/2014 Uric Acid, Normal Uric Acid 7.0 4.0-8.0 Elva l [facility] Serum or mg/dL mg/dL Diagnost ics- Plasma [facility] Lab: [address] h 06/06/2014 CMP, Serum or Normal Glucose 86 mg/dL 65-99 Fi nal [facility] Plasma mg/dL Diagnostic [facility]- [facility]: [address] ? ? Normal Urea 15 mg/dL 7-25 Final [facility] Nitrogen mg/dL Diagnost ics- (BUN) [facility] h Lab: [address] ? ? Normal Creatinine 0.94 0.60-1.[address] mg/dL 5 mg/dL Diagnosti cs- [facility]: [address] ? ? Normal eGFR 105 > or = Final [facility] Non-afr. mL/min/1 60 Diagno stics- English .73m2 mL/min/1 [place] .73m2 Lab: [address] ? ? Normal eGFR 122 > or = Final Que st English mL/min/1 60 Diagno stics- .73m2 mL/min/1 [place] [facility] .73m2 Lab: [address] ? ? ? BUN/creatini not 6-[address] ne Ratio applicab (calc) Diagno stics- le [facility] ([facility] Lab: [address], [facility] ? ? Normal Sodium 139 135-146 Final [facility] mmol/L mmol/L [facility]: [address], [facility] ? ? Normal Potassium 4.2 3.5-5.3 Final [facility] mmol/L mmol/L Diagnostic [facility]: [address], [facility] ? ? Normal Chloride 105 98-110 Final [facility] mmol/L mmol/L Diagnostic [facility] Lab: [address], [facility] ? ? Normal Carbon 22 19-30 Final [facility] Dioxide mmol/L mmol/L [facility] Lab: [address] B, [facility] ? ? Normal Calcium 10.0 8.6-10.3 Final [facility] mg/dL mg/dL Diagnostic [facility] Lab: [address], [facility] ? ? Normal Protein, 7.3 g/dL 6.1-8.1 Final Ques t Total g/dL Diagnostic [facility] h Lab: [address], [facility] ? ? Normal Albumin 4.8 g/dL 3.6-5.1 Final [facility] g/dL Diagnostic [facility] Lab: [address], [facility] ? ? Normal Globulin 2.5 g/dL 1.9-3.7 Final Ques t (calc) g/dL Diagnostic s- (calc) [facility] h Lab: [address], [facility] ? ? Normal Albumin/glob 1.9 1.0-2.5 Final Qu est ulin Ratio (calc) (calc) [facility] Lab: [address] B, [facility] ? ? Normal Bilirubin, 0.7 0.2-1.2 Final Ques t Total mg/dL mg/dL Diagnostic [facility] Lab: [address], [facility] ? ? Normal Alkaline 77 U/L 40-115 Final [facility] Phosphatase U/L Diagn ostics- [facility] Lab: [address] B, [facility] ? ? Normal Ast 28 U/L 10-40 Final [facility] U/L Diagnostic s- [facility] h Lab: [address] ? ? High Alt 59 U/L 9-46 U/L [facility] Lab: [address] 06/06/2014 Vitamin D, ? Vitamin D, 53 pg/mL 18-72 Fi nal [facility] 1,25-Dihydroxy 1,25 (Oh)2, pg/mL Diagnostics- , Serum Total [facility] Lab: [address] ? ? ? Vitamin D3, 53 pg/mL ? Final Qu est 1,25 (Oh)2 Diagno [facility] Lab: [address] ? ? ? Vitamin D2, <8 pg/mL ? Final Qu est 1,25 (Oh)2 Diagno [facility] Lab: [address] 06/06/2014 Vitamin D, ? Vitamin D, ? ? Inco mpl [facility] 1,25-Dihydroxy 1,25 (Oh)2, ete Diagnostics- , Serum Total [facility] Lab: [address] ? ? ? Vitamin D3, ? ? Incompl Que st 1,25 (Oh)2 ete Diagno [facility] Lab: [address] ? ? ? Vitamin D2, ? ? Incompl Que st 1,25 (Oh)2 ete Diagno [facility] Lab: [address] 06/06/2014 CBC W/ Auto Normal White Blood 8.6 3.8-10.8 Final [facility] Diff Cell Count thousand thousand Di agnostics- /uL /uL [facility] Lab: [address] ? ? Normal Red Blood 5.40 4.20-5.8 Final Ques t Cell Count million/ 0 Diag nostics- uL million/ [place] [facility] uL Lab: [address] [place], [place] ? ? Normal Hemoglobin 15.9 13.2-17. Final Que st g/dL 1 g/dL Diagnostic s- [place] Lab: [address] [place], [place] ? ? Normal Hematocrit 45.0 % 38.5-50. Final Que st 0 % Diagnostic s- [place] Lab: [address] [place], [place] ? ? Normal Mcv 83.3 fL 80.0-100 Final [facility] .0 fL Diagnostic s- [place] Lab: [address] [place], [place] ? ? Normal Mch 29.4 pg 27.0-33. Final [facility] 0 pg Diagnostic s- [place] Lab: [address] [place], [place] ? ? Normal Mchc 35.3 32.0-36. Final [facility] g/dL 0 g/dL Diagnostic s- [place] Lab: [address] [place], [place] ? ? Normal Rdw 13.6 % 11.0-15. Final [facility] 0 % Diagnostic s- [place] Lab: [address] [place], [place] ? ? Normal Platelet 191 140-400 Final [facility] Count thousand thousand Diagno stics- /uL /uL [place] Lab: [address] [place], [place] ? ? Normal Mpv 9.4 fL 7.5-11.5 Final [facility] fL Diagnostic s- [place] Lab: [address] [place], [place] ? ? Normal Absolute 4945 1500-780 Final [facility] Neutrophils cells/uL 0 [facility]- cells/uL [place] [facility] Lab: [address] [place], [place] ? ? Normal Absolute 2907 850-3900 Final [facility] Lymphocytes cells/uL cells/uL D iagnostics- [place] Lab: [address] [place], [place] ? ? Normal Absolute 507 200-950 Final [facility] Monocytes cells/uL cells/uL [facility] [place] Lab: [address] [place], [place] ? ? Normal Absolute 146 15-500 Final [facility] Eosinophils cells/uL cells/uL D iagnostics- [place] Lab: [address] [place], [place] ? ? Normal Absolute 95 0-200 Final [facility] Basophils cells/uL cells/uL [facility] [place] Lab: [address] [place], [place] ? ? Normal Neutrophils 57.5 % ? Final Ques t Diagnostic s- [place] Lab: [address] [place], [place] ? ? Normal Lymphocytes 33.8 % ? Final Ques t Diagnostic s- [place] Lab: [address] [place], [place] ? ? Normal Monocytes 5.9 % ? Final [facility] Diagnostic s- [place] Lab: [address] [place], [place] ? ? Normal Eosinophils 1.7 % ? Final Ques t Diagnostic s- [place] Lab: [address] [place], [place] ? ? Normal Basophils 1.1 % ? Final [facility] Diagnostic s- [place] Lab: [address] [place], [place] 06/06/2014 TSH, Serum or Normal Tsh 1.83 0.40-4.5 Elva l [facility] Plasma mIU/L 0 mIU/L Diagnosti cs- [place] Lab: [address] [place], [place] 06/01/2013 CBC/no Diff Normal White Blood 7.3 4.8-10.8 Final [place] (W/plt) Count k/cmm k/cmm [facility] : [address], [place] ? ? Normal Red Blood 5.42 4.70-6.1 Final [place] oba Count m/uL 0 m/uL [facility] : [address], [place] ? ? Normal Hemoglobin 15.6 14.0-18. Final [place]an hoba g/dL 0 g/dL [facility] : [address], [place] ? ? Normal Hematocrit 45.3 % 42.0-52. Final Kiran hoba 0 % [facility] : [address], [place] ? ? Normal Mean 83.6 fL 80.0-94. Final [place] Corpuscular 0 fL [place] Volume [facility] Laboratory : [address], [place] ? ? Normal Mean 28.8 pg 27-31 pg Final [place] Corpuscular [place] Hemoglobin [facility] : [address], [place] ? ? Normal Mean 34.4 33-37 Final [place] Corpuscular g/dL g/dL [place] HGB,concent Medic al [place] Laboratory : [address], [place] ? ? Normal Red Cell 13.0 % 11.5-14. Final [place] Distribution 5 % Vall ey [facility] Laboratory : [address], [place] ? ? Normal Platelet 192 130-400 Final [place] Count k/cmm k/cmm [facility] : [address], [place] ? ? High Mean 11.6 fL 6.2-10.2 Final [place] Platelet fL [facility] : [address], [place] 06/01/2013 Comprehensive Normal Glucose 97 mg/dL <100 Fi nal [place] Metabolic Random -fasting [place] y Panel mg/dL [facility] Laboratory : [address], [place] ? ? Normal BUN, Urea 18 mg/dL 5-25 Final [place] oba Nitrogen mg/dL [facility] Laboratory : [address], [place] ? ? Normal Creatinine 0.9 0.6-1.4 Final [place] oba mg/dL mg/dL [facility] : [address], [place] ? ? Normal GFR Est > 60 >=60 Final [place] mL/min/ [facility] : [address], [place] ? ? Normal eGFR Non > 60 >=60 Final [place] mL/min/ [facility] : [address], [place] ? ? Normal BUN/creatini 20.0 10-20 Final Kiran hoba ne Ratio [facility] : [address], [place] ? ? Normal Na,sodium 140 135-144 Final [place] mmol/L mmol/L [facility] : [address], [place] ? ? Normal Potassium 4.2 3.3-5.1 Final [place] mmol/L mmol/L [facility] : [address], [place] ? ? Normal cL, Chloride 105 98-107 Final Kiran hoba mmol/L mmol/L [facility] : [address], [place] ? ? Normal CO2, Carbon 28 23-32 Final [place] oba Dioxide mmol/L mmol/L [facility] : [address], [place] ? ? Normal Anion Gap 7 mmol/L 5-15 Final [place] oba mmol/L [facility] : [address], [place] ? ? Normal Calcium 10.2 8.6-10.3 Final [place] mg/dL mg/dL [facility] : [address], [place] ? ? Normal Bilirubin,to 0.8 0.1-1.3 Final Na hussein chelsy mg/dL mg/dL [facility] : [address], [place] ? ? Normal Alkaline 84 U/L 40-129 Final [place] Phosphatase U/L [facility] : [address], [place] ? ? Normal AST/SGOT 30 U/L 15-41 Final [place] U/L [facility] : [address], [place] ? ? Normal ALT/SGPT 60 U/L 14-63 Final [place] U/L [facility] : [address], [place] ? ? Normal Albumin 4.8 g/dL 4.0-5.0 Final [place] g/dL [facility] : [address], [place] ? ? Normal Albumin/glob 1.7 1.0-2.6 Final Na hussein ulin Ratio [facility] : [address], [place] ? ? Normal TP, 7.6 g/dL 6.4-8.3 Final [place] Protein,total g/dL [facility] Laboratory : [address], [place] 06/01/2013 Lipid Panel Normal Cholesterol 187 <200 Fi nal [place] mg/dL mg/dL [facility] : [address], [place] ? ? High Triglyceride 316 <150 Final Kiran hoba s mg/dL mg/dL [facility] : [address], [place] ? ? Low HDL 30 mg/dL >40 Final [place] Cholesterol mg/dL [facility] Laboratory : [address], [place] ? ? Normal LDL 94 mg/dL <130 Final [place] Cholesterol mg/dL [facility] (Calc) [facility] : [address], [place] ? ? Normal chol/HDL 6.2 ? Final [place] Ratio [facility] : [address], [place] ? ? Normal LDL/HDL 3.1 ? Final [place] Ratio [facility] : [address], [place] 06/01/2013 Uric Acid Normal Uric Acid 6.4 4.8-8.7 Final [place] mg/dL mg/dL [facility] : [address], [place] 06/01/2013 Vitamin Low Vitamin D 25 26 NG/mL > or = Fin al [place] D,25-Hydroxy Hydroxy 30 NG/mL [facility] Laboratory : [address], [place] 06/01/2013 Thyroid Normal TSH 2.35 0.34-5.6 Final [facility] hoba Stimulating Plasma,thyroi uIU/mL 0 uIU/mL [place] Hormone (TSH) d Stimulating [facility] Laboratory : [address], [place] ? Nebulizer ? No ? ? ? In-Hous e Treatment observation Or juno For (PROC) recorded. Stalin Provider: For Internal U se Only ? Urinalysis, ? Glucose n neg to ? In- House Dipstick 4+ Order Fo r Wood Provider: For Internal U se Only ? ? ? Bilirubin n neg to ? In-Chris se 3+ Order For Wood Provider: For Internal U se Only ? ? ? Ketones n neg to ? In-House 3+ Order For Stalin Provider: For Internal U se Only ? ? ? Specific 1.015 1 to ? In-Hous e Stuart 1.03 Order For Stalin Provider: For Internal U se Only ? ? ? Blood n neg to ? In-House 4+ Order For Stalin Provider: For Internal U se Only ? ? ? Ph 6.0 5 to 9 ? In-House Order For Stalin Provider: For Internal U se Only ? ? ? Protein n neg to ? In-House 4+ Order For Wood Provider: For Internal U se Only ? ? ? Urobilinogen 0.2 neg to ? In- House 4+ Order For Wood Provider: For Internal U se Only ? ? ? Nitrite n neg/pos ? In-Hous e Order For Wood Provider: For Internal U se Only ? ? ? Leukocytes n neg to ? In-Ho use 3+ Order For Stalin Provider: For Internal U se Only ? ? ? Sediment ? ? ? In-Hous e Order For Wood Provider: For Internal U se Only ? Urinalysis, ? Glucose n neg to ? In- House Dipstick 4+ Order Fo r Stalin Provider: For Internal U se Only ? ? ? Bilirubin n neg to ? In-Chris se 3+ Order For Stalin Provider: For Internal U se Only ? ? ? Ketones 1.015 neg to ? In-House 3+ Order For Wood Provider: For Internal U se Only ? ? ? Specific n 1 to ? In-Hous e Stuart 1.03 Order For Stalin Provider: For Internal U se Only ? ? ? Blood n neg to ? In-House 4+ Order For Stalin Provider: For Internal U se Only ? ? ? Ph 6.0 5 to 9 ? In-House Order For Wood Provider: For Internal U se Only ? ? ? Protein n neg to ? In-House 4+ Order For Stalin Provider: For Internal U se Only ? ? ? Urobilinogen 0.2 neg to ? In- House 4+ Order For Stalin Provider: For Internal U se Only ? ? ? Nitrite n neg/pos ? In-Hous e Order For Stalin Provider: For Internal U se Only ? ? ? Leukocytes n neg to ? In-Ho use 3+ Order For Stalin Provider: For Internal U se Only ? ? ? Sediment ? ? ? In-Hous e Order For Stalin Provider: For Internal U se Only Past Encounters 05/26/2021 Adult Health Examination; Gout; Administ ration of Influenza Vaccine Kori Martin MD: [address] [place] [address], [address], [place] [address], Ph. Social History Tobacco Smoking Status Never Smoker Notes: confirme d Vaccine List Vaccine Type COVID-19, mRNA, LNP-S, PF, 100 mcg/0.5 m L dose (Moderna) 06/29/2021?0.25 mL Influenza, injectable, MDCK, preservativ e free, quadrivalent 05/12/2017?0.5 mL 05/18/2019?0.5 mL 05/16/2020?0.5 mL 05/26/2021?0.5 mL influenza, intradermal, quadrivalent, pr eservative free 06/12/2015?0.1 mL influenza, seasonal, injectable, preserv ative free 06/06/2014?0.5 mL Plan of Care Reminders Provider Appointments None recorded. ? ? Lab None recorded. ? ? Referral None recorded. ? ? Procedures None recorded. ? ? Surgeries None recorded. ? ? Imaging None recorded. ? ? Vitals 05/26/2021 09:00AM Physical 30 Height Weight BMI Blood Pressure 68.75 in 205 lbs 2 oz 30.5 kg/m2 122/78 mm[Hg] 05/16/2020 07:00AM Physical 30 Height Weight BMI Blood Pressure 68.75 in 201 lbs 29.9 kg/m2 128/80 mm[Hg] 05/18/2019 08:00AM Physical 30 Height Weight BMI Blood Pressure 68.75 in 185 lbs 4 oz 27.6 kg/m2 112/84 mm[Hg] 05/08/2019 04:00PM Sick Visit 15 Height Weight BMI Blood Pressure 69 in 189 lbs 16 oz 28.1 kg/m2 124/80 mm[Hg] 05/16/2018 08:00AM Physical 30 Height Weight BMI Blood Pressure 69 in 224 lbs 2 oz 33.1 kg/m2 120/88 mm[Hg] 05/12/2017 10:00AM Physical 30 Height Weight BMI Blood Pressure 69 in 215 lbs 16 oz 31.9 kg/m2 118/82 mm[Hg] 12/07/2016 01:30PM Sick Visit 15 Height Weight BMI Blood Pressure 69 in 206 lbs 16 oz 30.6 kg/m2 110/70 mm[Hg] 06/09/2016 09:00AM Office Visit - 15min Height Weight BMI Blood Pressure 69 in 211 lbs 31.2 kg/m2 108/70 mm[Hg] 05/05/2016 01:30PM Physical 30 Height Weight BMI Blood Pressure 69 in 208 lbs 30.7 kg/m2 122/80 mm[Hg] 06/12/2015 04:00PM Physical 30 Height Weight BMI Blood Pressure 68.5 in 211 lbs 31.6 kg/m2 120/80 mm[Hg] 07/30/2014 04:30PM Office Visit - 15min Height Weight BMI 68.5 in 219 lbs 32.8 kg/m2 06/06/2014 10:00AM Physical 30 Height Weight BMI Blood Pressure 68.5 in 211 lbs 31.6 kg/m2 110/78 mm[Hg] 06/01/2013 11:15AM Physical 30 Height Weight BMI Blood Pressure 69 in 208 lbs 30.7 kg/m2 108/80 mm[Hg] 03/09/2013 10:45AM New Patient 15 Height Weight BMI Blood Pressure 69 in 208 lbs 30.7 kg/m2 110/70 mm[Hg]
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
--- NOTE | 2022-05-23 14:15 | DI.RAD_ITS ---
Exam(s) XR CLAVICLE RT EXAM: XR CLAVICLE RT CLINICAL HISTORY: trauma. TECHNIQUE: 2D digital imaging was performed. COMPARISON: No exams were available for comparison FINDINGS: 3 views There is a displaced comminuted fracture of the lateral aspect of the right clavicle. This is approx imately 1 cm from the AC joint but the AC joint itself appears intact as does the acromion. Humeral head and neck appear intact and there is no dislocation glenohumeral joint. IMPRESSION: Comminuted displaced fracture of the outer-lateral aspect of the right clavicle. The ipsilateral AC joint is intact. DATA REPOSITORY: RADIATION DOSE DELIVERED:
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
[2022-05-23] MEDS: Ibuprofen 600 MG TAB, 6 TABS/BTL PO (14:47)
[2022-05-23 15:00] VITALS: BP 134/86; PULSE 70; RESP 14; TEMP 37.2; O2SAT 99
== END 2022-05-23 15:02 | disposition home or self-care (01) ==
PROVIDERS: Emergency Provider Nurse Practitioner Family
DX: S42.031A Displaced fracture of lateral end of right clavicle, initial encounter for closed fracture (principal); S50.811A Abrasion of right forearm, initial encounter; V18.4XXA Pedal cycle driver injured in noncollision transport accident in traffic accident, initial encounter
CPT/HCPCS: 96372; 99284; 73000; 73030; J1885